=== PATIENT | female | born 1940 | race African-American/Black ===

== ENCOUNTER 2019-10-10 22:48 | Inpatient (IN) | payer OTHER ==
[~2019-10-10] VITALS: Ht 149.9 cm; Wt 84.8 kg
[2019-10-10 22:52] VITALS: BP 172/97
[2019-10-10 23:06] LABS: ABSOLUTE NEUTROPHILS 6.3 thou/uL (1.4-8.2); BASOPHILS 0.7 % (0.0-2.0); EOSINOPHILS 2.6 % (0.0-3.0); HEMOGLOBIN 13.4 gm/dL (12.0-15.0); LYMPHOCYTES 16.5 % (24.0-44.0); MCH 28.3 pg (26.0-34.0); MCHC 33.5 g/dL (28.0-37.0); MCV 84.6 fL (80.0-100.0); MONOCYTES 8.2 % (1.0-8.0); PLATELET COUNT 349 thou/uL (150-400); RBC 4.72 mil/uL (4.20-5.00); RDW 13.8 % (10.5-14.5); WBC 8.7 thou/uL (4.0-11.0)
[2019-10-10 23:11] LABS: CALCIUM 8.4 mg/dL (8.5-10.1); CREATININE 0.9 mg/dL (0.6-1.0)
--- NOTE | 2019-10-10 23:14 | NUR ---
informed consent signed with patient
[2019-10-10 23:22] LABS: ALBUMIN 3.2 g/dL (3.4-5.0); TOTAL BILIRUBIN 0.4 mg/dL (0.2-1.0); TOTAL PROTEIN 8.3 g/dL (6.4-8.2)
[2019-10-10 23:23] LABS: TROPONIN-I 5.08 ng/mL (<0.06)
[2019-10-10 23:27] VITALS: BP 172/88
--- NOTE | 2019-10-10 23:27 | NUR ---
PATIENT TAKEN TO JUNIOR ACCOUNTING CLERK AT THIS TIME
[2019-10-11] VITALS (16 sets, daily range): BP systolic 125–162; BP diastolic 65–99
--- NOTE | 2019-10-11 04:09 | NUR ---
PT NEW ADMIT, 0145 FROM SUPERVISOR BURLING AND JOINING, S/P STENT PLACEMENT DUE TO STEMI. PT ALERT AND ORIENTED. INITIAL VITALS STABLE. REPORTS CHEST PAIN AT A 03/15. ADMISSION COMPLETE. RIGHT GROIN SITE C/D/I ,NO HEMATOMA, PT DENIES PAIN TO THE SITE. POST CATH MEDICATION. PLAVIX, LIPITOR POTASSIUM GIVEN ON THE UNIT. PT VOMITTED ALL HER MEDICATION UPON ADMINISTRATION, AND ALSO UNABLE TO SWALLOW POTASSIUM PILLS. COMMUNICATION CLERK NOTIFIED, ORDERED POTASSIUM CHANGED TO IV AND A REPEAT OIF PLAVIX AND LIPITOR WAS INITIATED SINCE PT VOMITTED HER PREVIOUSLY GIVEN MEDICATIONS. NO FURTHER CONCERNS. ALL ASSESSMENTS DOCUMETED. WILL CONTINUE WITH POC.
[2019-10-11 05:52] LABS: CHOLESTEROL 213 mg/dL (<200); HDL CHOLESTEROL 76 mg/dL (>40); LDL CHOLESTEROL 124 mg/dL (<100); TC:HDL 2.8 Ratio (Not establshd); TRIGLYCERIDE 65 mg/dL (<150); VLDL 13 mg/dL (<40)
[2019-10-11 06:29] LABS: SERUM ASSESSMENT Clear
--- NOTE | 2019-10-11 07:55 | CATHLAB ---
[facility] [place] [address] INVASIVE PROCEDURE REPORT Name: ARCADIO BENSON Room #: 214-P ADM IN M.R.#: [id number] Admission: 10/10/19 Attend Phys: Elke Don Discharge: Date of : 38 Report #: [id number] THIS REPORT FOR: cc: FAM - No family physician/PCP FAM - No family physician/PCP Denis Britton MD [facility] ~ APPROVED REPORT Study performed: 10/10/2019 23:27:22 Patient Details Patient Status: Out-Patient Room #: The patient is a 78 year-old female Event Personnel Denis Britton Automatic Fancy Machine Operator, Carmelo Gayle RN, Kristina Hughes RTR, GRAYSON Burnette, Dieudonne Jung RTR Monitor Procedures Performed Art Access - R femoral artery* Left Heart Cath w/or w/o Coronaries [id number] [facility] YESENIA Revasc AMI Total/Sub Single LAD C9606 AMIREVSING Indication Chest pain Procedure Narrative The Right Groin^ was infiltrated with 1% Lidocaine subcutaneous anesthesia. A PINNACLE 6FR Sheath #[id number] sheath was inserted into the RFA^. Coronary angiography was performed using coronary diagnostic catheters. The right coronary system was accessed and visualized with a JR4 catheter. The left coronary system was accessed and visualized with a JL4 catheter. The left ventricle was accessed and visualized with a PIGTAIL catheter. Left ventriculogram was performed in 30 degree projection. Closure device was deployed with a 6 Fr MYNXGRIP 6/7F #[id number]. The patient tolerated the procedure well and there were no complications associated with the procedure. There was no hematoma. Fluoro Time: 6.01 minutes Dose: DAP 7799.50 cGycm2 1114 mGy Contrast Type and Amount: Visipaque 220 ml Coronary Angiography [facility] [address] [place] [address] INVASIVE PROCEDURE REPORT Name: KELLEYABBIEVASQUEZ Room #: 214-[facility] IN ..#: [id number] Admission: 10/10/19 Attend Phys: Elke Ingram Discharge: Date of : 39 Report #: [id number] The patient's coronary anatomy is right dominant. Diagnostic Cath Left Main Normal left main LAD Proximal LAD occlusion. VALENTINA 0 flow Diagonal 1 Small first diagonal branch, angiographically normal Circumflex Normal circumflex OM1 Large bifurcating OM1, angiographically normal OM2 Small second OM, angiographically normal OM3 Distally rising, small third marginal branch, angiographically normal Right Coronary Normal dominant right coronary. R PDA Normal small posterior descending RPLV Normal moderate sized posterior lateral branch Left Ventriculography The left ventricle is normal in size with abnormal contractility. The left ventricular ejection fraction is estimated to be 40-45%. Left ventricular wall motion abnormalities are present. There is no mitral insufficiency. Anterolateral, apical, and inferoapical hypokinesis Hemodynamics The aortic pressure is 172/92 mmHg with a mean of 125 mmHg. The left ventricular pressure is 157/13 mmHg with a mean of mmHg. The left ventricular end diastolic pressure is 32 mmHg. PCI Technique Lesion Anticoagulation was achieved with Heparin, Integrilin. Patient was preloaded with Plavix. Percutaneous coronary intervention was performed on the proximal left anterior descending artery segment. The lesion stenosis prior to intervention was 100% with VALENTINA 0 flow. A LAUNCHER 6FR EBU 3.5 #[id number] Guide Catheter was used to engage the left main ostium. A Luge Wire .014 x 182CM #[id number] Interventional Guidewire was used to cross the lesion. BALLOON DILATION A Balloon catheter Euphora RX 2.5 x 12 #[id number] was inserted and inflated up to 8.00atm for 22seconds. Repeat angiography revealed the following post-dilatation results: Moderate residual stenosis. VAELNTINA-3 flow restored. STENT DEPLOYMENT A drug-eluting stent RESOLUTE KRAIG RX 3.0 X 18 #[id number] was inserted and inflated up to 14.00atm for 27seconds. Repeat angiography [address] [address] INVASIVE PROCEDURE REPORT Name: ABBIE BENSONCATRACHITORandy Room #: 214-P [facility] IN M.R.#: [id number] Admission: 10/10/19 Attend Phys: Elke Ingram Discharge: Date of : 39 Report #: [id number] revealed the following post-stent deployment results: 0% residual. POST STENT DEPLOYMENT BALLOON DILATION A Balloon catheter BubbleballK NC RX 3.0 X 15 #[id number] was inserted and inflated up to 18.00atm for 30seconds. Additional Inflation: 20.00atm for 25seconds. Final angiography reveals 0 % stenosis with VALENTINA 3 flow. Conclusion 1. Moderate left ventricular dysfunction with anterolateral, apical, and inferoapical hypokinesis. Ejection fraction 40-45% 2. Normal left main 3. Proximal LAD occlusion stented with a 3.0 x 18 mm Resolute stent 4. Normal circumflex and right coronary arteries. Right coronary dominant circulation Recommendations Daily ASA with Plavix for at least one year Cardiac Risk Reduction Program <ELECTRONICALLY SIGNED> By: Denis Britton MD, FACC 10/11/19 0754 3 075 Denis Britton MD, FACC /INF
[2019-10-11] MEDS ORDERED: ASPIRIN325 PO (07:58)
[2019-10-11] MEDS ORDERED: CLOPIDOGREL75 MG PO (07:58)
[2019-10-11] MEDS ORDERED: LIPITOR40 MG PO (07:58)
[2019-10-11] MEDS ORDERED: COZAAR 50 MG TA50 M1 PO (07:58)
[2019-10-11] MEDS ORDERED: METOPROLOL SUCC50 MG PO (07:58)
--- NOTE | 2019-10-11 08:55 | 2DMMODE ---
[facility] [address] [place] [address] 2 D/M-MODE ECHOCARDIOGRAM Name: ARCADIO BENSON Room #: 214-P ADM IN M.R.#: [id number] Admission: 10/10/19 Attend Phys: Elke Don Discharge: Date of : 39 Report #: [id number] THIS REPORT FOR: cc: FAM - No family physician/PCP FAM - No family physician/PCP Denis Britton MD [facility] ~ APPROVED REPORT Study performed: 10/11/2019 07:56:42 EXAM: Comprehensive 2D, Doppler, and color-flow Echocardiogram Patient Location: Bedside Room #: 214 Status: routine BSA: 1.70 HR: 105 bpm BP: 146/93 mmHg Rhythm: Sinus Tach Other Information Study Quality: Good Indications TX, status post stent. 2D Dimensions RVDd: 31.98 mm IVSd: 10.00 (7-11mm) LVOT Diam: 20.36 (18-24mm) LVDd: 46.63 mm PWd: 10.10 (7-11mm) Ascending Ao: 28.58 (22-36mm) LVDs: 36.26 (25-40mm) Aortic Root: 30.03 mm Volumes Left Atrial Volume (Systole) Single Plane 4CH: 56.76 mL Single Plane 2CH: 43.86 mL LA ESV Index: 32.00 mL/m2 Aortic Valve AoV Peak Adalberto.: 1.31 m/s AO Peak Gr.: 6.90 mmHg LVOT Max P.65 mmHg LVOT Max V: 0.81 m/s KADI Vmax: 2.01 cm2 [facility] [address] [place] [address] 2 D/M-MODE ECHOCARDIOGRAM Name: KELLEYARCADIO Room #: 214-P [facility] IN ..#: [id number] Admission: 10/10/19 Attend Phys: Elke Ingram Discharge: Date of : 39 Report #: [id number] Mitral Valve E/A Ratio: 0.8 MV Decel. Time: 106.60 ms MV E Max Adalberto.: 0.76 m/s MV A Adalberto.: 0.90 m/s MV PHT: 30.91 ms IVRT: 69.20 ms Pulmonary Valve PV Peak Adalberto.: 0.78 m/s PV Peak Gr.: 2.42 mmHg Tricuspid Valve TR Peak Adalberto.: 3.06 m/s RAP Estimate: 5.00 mmHg TR Peak Gr.: 37.49 mmHg PA Pressure: 42.00 mmHg Left Ventricle The left ventricle is normal size. Anterolateral, apical, and inferoapical hypokinesis Moderate basal septal hypertrophy is present. Left ventricular systolic function is moderately decreased. LVEF is 35-40%. Mild diastolic dysfunction is present (impaired relaxation pattern). Right Ventricle The right ventricle is normal size. The right ventricular systolic function is normal. Atria Left atrium is mildly dilated. The right atrium size is normal. Aortic Valve Aortic valve is mildly calcified, trileaflet. Mild aortic regurgitation. There is no aortic valvular stenosis. Mitral Valve The mitral valve is normal in structure. Mild mitral regurgitation. No evidence of mitral valve stenosis. Tricuspid Valve The tricuspid valve is normal in structure. Mild tricuspid regurgitation. Estimated PAP is 40-45mmHg. Pulmonic Valve The pulmonary valve is normal in structure. Trace pulmonic regurgitation. [facility] [address] [place] [address] 2 D/M-MODE ECHOCARDIOGRAM Name: ARCADIO BENSON Room #: 214-P ADM IN M.R.#: [id number] Admission: 10/10/19 Attend Phys: Elke Ingram Discharge: Date of : 39 Report #: [id number] Great Vessels The aortic root is normal in size. The ascending aorta is normal in size. IVC is normal in size and collapses >50% with inspiration. Pericardium There is no pericardial effusion. <Conclusion> Left ventricular systolic function is moderately decreased. Anterolateral, apical, and inferoapical hypokinesis LVEF is 35-40%. Mild diastolic dysfunction Aortic valve is mildly calcified, trileaflet. Mild aortic regurgitation, no stenosis. The mitral valve is normal in structure. Mild mitral regurgitation. Mild tricuspid regurgitation. Estimated pulmonary artery pressure of 40 mmHg. There is no pericardial effusion. <ELECTRONICALLY SIGNED> By: Denis Britton MD, [facility] 10/11/19 0855 4 4 Denis Britton MD, [facility] /INF
--- NOTE | 2019-10-11 09:16 | EKG ---
[facility] [place] [address] [address] ELECTROCARDIOGRAM REPORT Name: ARCADIO BENSON Room #: 214-P ADM IN M.R.#: [id number] Admission: 10/10/19 Attend Phys: Elke Don Discharge: Date of : 39 Report #: [id number] THIS REPORT FOR: cc: FAM - No family physician/PCP FAM - No family physician/PCP Denis Britton MD [facility] THIS REPORT FOR: //name// [facility] ED Test Date: 2019-10-10 Test Time: 22:50:10 Pat Name: ARCADIO BENSON Department: Room: [facility] Gender: F Microgrinder Operator: BERNARDO : 1940 Requested By: Aleksandar Espinosa Order Number: [id number] MD: Denis Britton Measurements Intervals [place] Rate: 100 P: 52 IA: 124 QRS: -12 QRSD: 80 T: 38 QT: 341 QTc: 440 Interpretive Statements Sinus tachycardia Left ventricular hypertrophy anterior infarct, acute (LAD) No previous ECG available for comparison Electronically Signed On 10-11-2019 9:16:41 CDT by Denis Britton [email or web address] <ELECTRONICALLY SIGNED> By: Denis Britton MD, FACC 08/07/20 0916 2250 2250 Denis Britton MD, [facility] /EPI
--- NOTE | 2019-10-11 09:20 | EKG ---
[facility] [place] [address] ELECTROCARDIOGRAM REPORT Name: ARCADIO BENSON Room #: 214-P ADM IN M.R.#: [id number] Admission: 10/10/19 Attend Phys: Elke Don Discharge: Date of : 39 Report #: [id number] THIS REPORT FOR: cc: CARMELO - No family physician/PCP CARMELO - No family physician/PCP Denis Britton MD [facility] THIS REPORT FOR: //name// [facility] Test Date: 2019-10-11 Test Time: 07:53:35 Pat Name: ARCADIO BENSON Department: Room: [facility] Gender: F Manager Shipping: FIFI : 1940 Requested By: Denis Britton Order Number: [id number] MD: Denis Britton Measurements Intervals [place] Rate: 103 P: 35 AR: 124 QRS: -15 QRSD: 85 T: 224 QT: 392 QTc: 513 Interpretive Statements Sinus tachycardia Anterior infarct, recent Prolonged QT interval Baseline wander in lead(s) II,III,aVF Compared to ECG 10/10/2019 22:50:10 Prolonged QT interval now present ST segment elevation is less pronounced Electronically Signed On 10-11-2019 9:20:33 CDT by Denis Britton [email or web address] <ELECTRONICALLY SIGNED> By: Denis Britton MD, [facility] 10/11/19919 2 075 Denis Britton MD, [facility] /EPI
--- NOTE | 2019-10-11 16:47 | NUR ---
ASSUMMED PT CARE AT APPROXIMATELY 0700. PT A&O X4. ASSESSMENT CHARTED. FALL PRECAUTIONS IN PLACE. PT DENIES HAVING CHEST PAIN. PT DENIES HAVING SOB. PT DENIES HAVING ACUTE PAIN. PT AMBULATES STEADY/INDEPENDENT. PT AMBULATING AROUND UNIT. PT UP TO CHAIR THROUGHOUT SHIFT. EDUCATED PT AND PT'S FAMILY ABOUT POC. PT AND PT'S STATED UNDERSTANDING AND DENIED HAVING FURTHER CONCERNS. VITAL SIGNS STABLE. HYPOGLYCEMIC PROTOCOL FOLLOWED. BLOOD SUGAR STABLE. PT COMFORTABLE. PT DENIES HAVING FURTHER CONCERNS.
[2019-10-12 03:06] LABS: GLYCOHEMOGLOBIN (HGB A1C) 6.2 % (4.8-5.6)
[2019-10-12 04:20] VITALS: BP 134/83
[2019-10-12 04:54] LABS: HEMATOCRIT 39.3 % (37.0-47.0); HEMOGLOBIN 13.2 gm/dL (12.0-15.0); MCH 28.5 pg (26.0-34.0); MCHC 33.6 g/dL (28.0-37.0); MCV 84.8 fL (80.0-100.0); RBC 4.64 mil/uL (4.20-5.00); RDW 14.2 % (10.5-14.5); WBC 10.9 thou/uL (4.0-11.0)
[2019-10-12 05:24] LABS: ALBUMIN 2.9 g/dL (3.4-5.0); CALCIUM 8.7 mg/dL (8.5-10.1); POTASSIUM 4.1 mmol/L (3.5-5.1); TOTAL BILIRUBIN 0.4 mg/dL (0.2-1.0); TOTAL PROTEIN 7.9 g/dL (6.4-8.2)
[2019-10-12 05:26] LABS: TROPONIN-I 36.79 ng/mL (<0.06)
[2019-10-12 08:10] VITALS: BP 128/72
[2019-10-12 12:00] VITALS: BP 179/82; BP 98/59
[2019-10-12 16:00] VITALS: BP 116/62
--- NOTE | 2019-10-12 18:32 | NUR ---
PT CARE ASSUMED APPROX 0700. ASSESSMENTS CHARTED. PT DENIES PAIN AND SOA. VSS. UP WITH STEADY GAIT. BS LOW THIS EVENING. PT ATE AND HYPOGLYCEMIA RESOLVED. PT WAS ASYMPTOMATIC WHEN BLOOD GLUCOSE WAS LOW. PT DENIES QUESTIONS OR CONCERNS REGARDING POC. NO DISTRESS NOTED.
[2019-10-12 20:00] VITALS: BP 111/54
[2019-10-13 04:00] VITALS: BP 128/57
--- NOTE | 2019-10-13 05:54 | NUR ---
ASSESSMENT DOCUMENTED.PT BEEN RESTING IN NO ACUTE DISTRESS.VSS.DENIES CHEST PAIN.UP AD GUADALUPE TO BR.NSR ON MONITOR.PT TO DISCHARGE TO HOME TODAY.WILL CONT TO MONITOR PER POC.
[2019-10-13 08:00] VITALS: BP 142/62
[2019-10-13] MEDS ORDERED: METFORMIN HCL500 M3 PO (09:05)
[2019-10-13 10:20] VITALS: BP 140/62
--- NOTE | 2019-10-13 11:32 | NUR ---
ASSUMED CARE AT SHIFT CHANGE, ALERT AND ORIENTED AND VSS. DENEIS ANY DISCOMFORT OR CP. DISCHARGE AND MEDICATION INSTRUCTIONS GIVEN TO PATIENT.
--- NOTE | 2019-10-14 08:11 | EKG ---
[facility] [place] [address] ELECTROCARDIOGRAM REPORT Name: RACADIO BENSON Room #: 214- DIS IN M.R.#: [id number] Admission: 10/10/19 Attend Phys: Elke Don Discharge: 10/13/19 Date of : 39 Report #: [id number] THIS REPORT FOR: cc: CARMELO - No family physician/PCP CARMELO - No family physician/PCP Denis Britton MD [facility] ~ THIS REPORT FOR: //name// [facility] Test Date: 2019-10-12 Test Time: 07:51:28 Pat Name: ARCADIO BENSON Department: Room: 214 Gender: F Osteopathic Medicine Teacher: Rut KENNEDY : 1940 Requested By: Denis Britton Order Number: [id number] MD: Denis Britton Measurements Intervals [place] Rate: 95 P: 45 MO: 114 QRS: -20 QRSD: 85 T: 176 QT: 404 QTc: 508 Interpretive Statements Sinus rhythm Borderline short MO interval LVH with secondary repolarization abnormality Anterior infarct, recent Prolonged QT interval Compared to ECG 10/11/2019 07:53:35 No significant change was found Electronically Signed On 10-14-2019 8:11:40 CDT by Denis Britton [email or web address] <ELECTRONICALLY SIGNED> By: Denis Britton MD, FAC 10/14/19810 0 0 Denis Britton MD, FAC /EPI
--- NOTE | 2019-10-14 16:21 | HC ---
[facility] [place] [address] CONSULTATION Name: ARCADIO BENSON Room #: 214-P [facility] IN M.R.#: [id number] Admission: 10/10/19 Attend Phys: Elke Don Discharge: 10/13/19 Date of : 39 Report #: [id number] THIS REPORT FOR: cc: CARMELO - No family physician/PCP CARMELO - No family physician/PCP Denis Britton MD [facility] ~ CC: Denis Britton [facility] physician/PCP Alan Alford REASON FOR CONSULTATION: Myocardial infarction, chest pain. HISTORY OF PRESENT ILLNESS: The patient is a 78-year-old woman with a history of borderline hypertension. She otherwise has a fairly limited past medical history. Around 3:00 p.m. this afternoon, she developed what she thought was indigestion. This pain waxed and waned throughout the late afternoon and early evening. Pain recurred and became much more intense, prompting her to call 911 and presented to the Emergency Department. On presentation, an EKG demonstrated the anterior ST segment elevation. She has ongoing pain with associated shortness of breath and mild diaphoresis. No prior cardiac history. No history of palpitations, near syncope or syncope. ALLERGIES: She is allergic to PENICILLIN. MEDICATIONS: She takes no medicines on a regular basis. PAST MEDICAL HISTORY: Medical records include borderline hypertension, dyslipidemia. No prior surgeries, illnesses or hospitalizations. SOCIAL HISTORY: She is a nonsmoker, nondrinker. FAMILY HISTORY: Unremarkable for premature coronary artery disease. REVIEW OF SYSTEMS: All systems negative except as that noted above. PHYSICAL EXAMINATION: GENERAL: Reveals a pleasant woman who is in moderate distress. VITAL SIGNS: Blood pressure is 170/81, heart rate of 100 and regular. She is afebrile. HEENT: There is neither xanthelasma, subcutaneous xanthomata, oral mucosal or digital cyanosis or kyphoscoliosis present. CHEST: Clear to auscultation and percussion. CARDIAC: Regular rate and rhythm with distant heart sounds. ABDOMEN: Soft and nontender. EXTREMITIES: Without cyanosis, clubbing or edema. Radial pulses are 2+. NEUROLOGIC: She is alert with a nonfocal exam. [facility] [address] [place] [address] CONSULTATION Name: ARCADIO BENSON Room #: 214-P [place] IN .R.#: [id number] Admission: 10/10/19 Attend Phys: Elke Don Discharge: 10/13/19 Date of : 39 Report #: [id number] LABORATORY DATA: EKG as detailed above. White count 8.7, hemoglobin 13, hematocrit 40, platelet count 349. Sodium 141, potassium 3.0, creatinine 0.9, glucose 158. Chest x-ray has been performed and remains pending. IMPRESSION: 1. Acute anterior myocardial infarction. 2. Acute systolic heart failure. 3. Hypertension. 4. Dyslipidemia. 5. Elevated blood sugar without prior diagnosis of diabetes. RECOMMENDATIONS: 1. Therapy with heparin, aspirin, beta blockade. 2. Urgent coronary angiography. The angiographic procedure was discussed in detail including its associated risks and alternatives. After a thorough discussion of the procedure, its risks and alternatives and after answering her questions, she is agreeable to proceeding. <ELECTRONICALLY SIGNED> By: Denis Britton MD, [facility] 10/14/19 1621 2321 [id number] Denis Britton MD, FACC /nt
== END 2019-10-13 12:06 | disposition home or self-care (01) | DRG 246 ==
LOC: ER 22:48 → TBACV 23:17 → 2N 23:17 → TBACV 23:27 → 2N 10-11 01:44
PROVIDERS: Emergency Medicine; Internal Medicine; Nurse Practitioner Family; ADMIT Hospitalist; ATTEND Hospitalist
PROC: B215YZZ Fluoroscopy of Left Heart using Other Contrast (ICD-10-PCS; principal; 2019-10-10)
PROC: B211YZZ Fluoroscopy of Multiple Coronary Arteries using Other Contrast (ICD-10-PCS; principal; 2019-10-10)
PROC: 4A023N7 Measurement of Cardiac Sampling and Pressure, Left Heart, Percutaneous Approach (ICD-10-PCS; principal; 2019-10-10)
PROC: 027034Z Dilation of Coronary Artery, One Artery with Drug-eluting Intraluminal Device, Percutaneous Approach (ICD-10-PCS; principal; 2019-10-10)
PROC: 3E033PZ Introduction of Platelet Inhibitor into Peripheral Vein, Percutaneous Approach (ICD-10-PCS; principal; 2019-10-10)
DX: I21.09 ST elevation (STEMI) myocardial infarction involving other coronary artery of anterior wall (principal); I50.21 Acute systolic (congestive) heart failure; J98.11 Atelectasis; I11.0 Hypertensive heart disease with heart failure; E78.5 Hyperlipidemia, unspecified; I25.5 Ischemic cardiomyopathy; R63.4 Abnormal weight loss; G47.00 Insomnia, unspecified; K59.00 Constipation, unspecified; E11.65 Type 2 diabetes mellitus with hyperglycemia; Z68.37 Body mass index [BMI] 37.0-37.9, adult; Z80.0 Family history of malignant neoplasm of digestive organs; Z80.1 Family history of malignant neoplasm of trachea, bronchus and lung; Z88.0 Allergy status to penicillin; Z80.42 Family history of malignant neoplasm of prostate; Z79.4 Long term (current) use of insulin
CPT/HCPCS: 10081

== ENCOUNTER → 2019-11-12 | Outpatient (CLI) | payer OTHER ==
[~2019-11-12] MED LIST: ASPIRIN325 PO; CLOPIDOGREL75 MG PO; COZAAR 50 MG TA50 M1 PO; LIPITOR40 MG PO; METFORMIN HCL500 M3 PO; METOPROLOL SUCC50 MG PO
== END ==
LOC: SJCVC 12:43
PROVIDERS: ATTEND Internal Medicine
DX: R94.31 Abnormal electrocardiogram [ECG] [EKG] (principal); I25.10 Atherosclerotic heart disease of native coronary artery without angina pectoris; I25.5 Ischemic cardiomyopathy; E11.9 Type 2 diabetes mellitus without complications; E78.5 Hyperlipidemia, unspecified; I25.2 Old myocardial infarction; I11.0 Hypertensive heart disease with heart failure; I50.20 Unspecified systolic (congestive) heart failure; Z79.82 Long term (current) use of aspirin; Z79.899 Other long term (current) drug therapy; Z79.84 Long term (current) use of oral hypoglycemic drugs; Z98.61 Coronary angioplasty status; Z87.891 Personal history of nicotine dependence

== ENCOUNTER → 2020-03-13 | Outpatient (CLI) | payer OTHER | LOC: SJCVCIMAG 10:12 | PROVIDERS: ATTEND Internal Medicine | DX: I08.2 Rheumatic disorders of both aortic and tricuspid valves (principal); R94.31 Abnormal electrocardiogram [ECG] [EKG]; R00.1 Bradycardia, unspecified; I11.9 Hypertensive heart disease without heart failure; I25.10 Atherosclerotic heart disease of native coronary artery without angina pectoris; I25.5 Ischemic cardiomyopathy; E78.5 Hyperlipidemia, unspecified; E11.9 Type 2 diabetes mellitus without complications; I65.23 Occlusion and stenosis of bilateral carotid arteries; I25.2 Old myocardial infarction; Z95.5 Presence of coronary angioplasty implant and graft; Z79.82 Long term (current) use of aspirin; Z79.899 Other long term (current) drug therapy; Z87.891 Personal history of nicotine dependence ==

== ENCOUNTER → 2020-09-10 | Outpatient (CLI) | payer OTHER | LOC: SJCVCIMAG 07:58 | PROVIDERS: ATTEND Internal Medicine | DX: I65.23 Occlusion and stenosis of bilateral carotid arteries (principal); R94.31 Abnormal electrocardiogram [ECG] [EKG]; I49.49 Other premature depolarization; I25.10 Atherosclerotic heart disease of native coronary artery without angina pectoris; I25.5 Ischemic cardiomyopathy; E78.5 Hyperlipidemia, unspecified; E11.9 Type 2 diabetes mellitus without complications; I25.2 Old myocardial infarction; I11.0 Hypertensive heart disease with heart failure; I50.20 Unspecified systolic (congestive) heart failure; R09.89 Other specified symptoms and signs involving the circulatory and respiratory systems; Z95.5 Presence of coronary angioplasty implant and graft; Z88.0 Allergy status to penicillin; Z79.82 Long term (current) use of aspirin; Z79.899 Other long term (current) drug therapy; Z87.891 Personal history of nicotine dependence ==

== ENCOUNTER → 2021-03-15 | Outpatient (CLI) | payer OTHER | LOC: SJCVC 10:05 | PROVIDERS: ATTEND Internal Medicine | DX: R94.31 Abnormal electrocardiogram [ECG] [EKG] (principal); I11.0 Hypertensive heart disease with heart failure; I50.21 Acute systolic (congestive) heart failure; I25.10 Atherosclerotic heart disease of native coronary artery without angina pectoris; I25.5 Ischemic cardiomyopathy; E78.5 Hyperlipidemia, unspecified; E11.9 Type 2 diabetes mellitus without complications; I65.23 Occlusion and stenosis of bilateral carotid arteries; Z79.82 Long term (current) use of aspirin; Z79.899 Other long term (current) drug therapy; Z88.0 Allergy status to penicillin; Z87.891 Personal history of nicotine dependence ==